=== PATIENT | male | born 1990 | race Two or more races ===

== ENCOUNTER 2018-05-04 01:50 | Inpatient (IN) | payer MEDICAID ==
[~2018-05-04] VITALS: Ht 175.3 cm; Wt 78.5 kg
[2018-05-04] MEDS ORDERED: MORPHINE SULFATE 4 MG/ML CPJ (NOT FOR IM USE) IV STA (02:38)
[2018-05-04] MEDS ORDERED: SODIUM CHLORIDE 0.9% 1,000 ML IV ONE (02:38)
[2018-05-04] MEDS ORDERED: ONDANSETRON HCL 4MG/2ML INJ IM ONE (02:45)
[2018-05-04 03:50] LABS: BASOPHILS % 0.3 % (0.0-2.0); EOSINOPHILS % 0.4 % (0.0-5.0); HEMATOCRIT. 50.3 % (42.0-52.0); LYMPHOCYTES % 16.5 % (20.0-50.0); MEAN CORPUSCULAR HEMOGLOBIN 30.6 pg (28.0-32.0); MEAN CORPUSCULAR VOLUME 90.4 fL (80.0-94.0); NEUTROPHILS % 75.8 % (40.0-76.0); PLATELET 287 x1000/uL (130-400); RED BLOOD CELL COUNT 5.57 mill/uL (4.7-6.1); RED CELL DISTRIBUTION WIDTH 12.8 % (11.6-14.6)
[2018-05-04 03:57] LABS: INR 1.1; PROTHROMBIN TIME 11.3 sec (9.1-11.1)
[2018-05-04 04:01] LABS: CHLORIDE 105 mEq/L (98-107)
[2018-05-04] MEDS ORDERED: METRONIDAZOLE 500MG TABLET PO ONE (04:15)
[2018-05-04] MEDS ORDERED: SODIUM CHLORIDE 0.9% 1000ML BAG (SEPSIS BOLUS) IV ONE (04:30)
[2018-05-04] MEDS ORDERED: CEFTRIAXONE 1 G PREMIX 50 ML IV SCH (04:54)
[2018-05-04] MEDS ORDERED: METRONIDAZOLE 500 MG PREMIX 100 ML IV SCH (04:55)
[2018-05-04] MEDS ORDERED: ONDANSETRON HCL 4MG/2ML INJ IV ONE (05:30)
[2018-05-04 08:00] VITALS: BP 139/86
[2018-05-04 08:50] VITALS: BP 139/86
[2018-05-04] MEDS ORDERED: LORA10CA MT (10:22)
[2018-05-04] MEDS ORDERED: ACETAMINOPHEN 325MG TABLET PO PRN (11:00)
[2018-05-04] MEDS ORDERED: MAGNESIUM/ALUMINUM HYDROXIDE/SIMETHICONE 30ML UDC PO PRN (11:00)
[2018-05-04] MEDS ORDERED: ONDANSETRON HCL 4MG/2ML INJ IV PRN (11:00)
[2018-05-04] MEDS ORDERED: DIPHENHYDRAMINE 50MG/ML VIAL IV PRN (11:00)
[2018-05-04] MEDS ORDERED: KETOROLAC 30MG/ML VIAL IV PRN (11:15)
[2018-05-04] MEDS ORDERED: LEVOFLOXACIN 500MG PREMIX 100 ML IV SCH (12:00)
[2018-05-04] MEDS ORDERED: MVI, ADULT NO.1 10 ML, FOLIC ACID 1 MG, THIAMINE HCL 100 MG in SODIUM CHLORIDE 0.9% 1,0... IV SCH ×4 (12:30)
[2018-05-04] MEDS: SODIUM CHLORIDE 0.9% 1,000 ML IV SCH ×2 (12:44→22:34)
[2018-05-04 16:00] VITALS: BP 115/71
[2018-05-04 20:00] VITALS: BP 121/64
[2018-05-04 21:11] LABS: CLARITY URINE CLEAR (CLEAR); COLOR URINE YELLOW (YELLOW); KETONES URINE TRACE (NEGATIVE); LEUKOCYTE ESTERASE URINE NEGATIVE (NEGATIVE); NITRITE URINE NEGATIVE (NEGATIVE); OCCULT BLOOD URINE NEGATIVE (NEGATIVE); PROTEIN URINE NEGATIVE (NEGATIVE); SPECIFIC GRAVITY URINE 1.008 (1.005-1.030); UROBILINOGEN URINE 0.2 E.U./dL (0.2-1.0)
[2018-05-04 21:23] LABS: *AMPHETAMINES SCREEN URINE NEGATIVE (NEGATIVE); *BARBITURATES SCREEN URINE NEGATIVE (NEGATIVE); *BENZODIAZEPINES SCREEN URINE NEGATIVE (NEGATIVE); *COCAINE SCREEN URINE NEGATIVE (NEGATIVE); METHADONE URINE SCREEN NEGATIVE (NEGATIVE); OPIATES URINE SCREEN PRESUMTIVE POSITIVE (NEGATIVE)
[2018-05-04 21:24] LABS: CANNABINOID URINE SCREEN PRESUMTIVE POSITIVE (NEGATIVE); PHENCYCLIDINE URINE SCREEN NEGATIVE (NEGATIVE)
[2018-05-04] MEDS: FAMOTIDINE 20MG/2ML VIAL IV SCH (21:44)
[2018-05-04 22:00] VITALS: BP 135/78
[2018-05-05] VITALS: BP 135/78
[2018-05-05 07:36] LABS: BASOPHILS % 0.1 % (0.0-2.0); EOSINOPHILS % 0.1 % (0.0-5.0); HEMATOCRIT. 42.5 % (42.0-52.0); HEMOGLOBIN. 14.6 g/dL (14.0-18.0); LYMPHOCYTES % 15.3 % (20.0-50.0); MEAN CORPUSCULAR HEMOGLOBIN 31.1 pg (28.0-32.0); MEAN CORPUSCULAR VOLUME 90.7 fL (80.0-94.0); MEAN PLATELET VOLUME 8.3 fl (7.4-10.4); MONOCYTES % 11.8 % (2.0-8.0); NEUTROPHILS % 72.7 % (40.0-76.0); PLATELET 245 x1000/uL (130-400); RED BLOOD CELL COUNT 4.68 mill/uL (4.7-6.1)
[2018-05-05 07:43] LABS: CHLORIDE 109 mEq/L (98-107)
[2018-05-05 07:59] LABS: PHOSPHORUS 2.3 mg/dL (2.5-4.9)
[2018-05-05 08:00] VITALS: BP 122/90
[2018-05-05] MEDS: FAMOTIDINE 20MG/2ML VIAL IV SCH (08:40)
[2018-05-05] MEDS ORDERED: POTASSIUM-SODIUM PHOSPHATE POWDER PACKET PO SCH (12:15)
[2018-05-05 12:50] VITALS: BP 117/89
== END 2018-05-05 13:24 | disposition home or self-care (01) | DRG 720 ==
LOC: EDBEDREQTM 05:42 → EDBEDREQ 05:42 → ENRESERV 07:25 → ER 08:51 → 5WST 08:52 → 8WST 14:45
PROVIDERS: ADMIT Internal Medicine; ATTEND Internal Medicine
DX: A41.9 Sepsis, unspecified organism (principal); F17.200 Nicotine dependence, unspecified, uncomplicated; K52.9 Noninfective gastroenteritis and colitis, unspecified; Z80.42 Family history of malignant neoplasm of prostate; Z82.49 Family history of ischemic heart disease and other diseases of the circulatory system
CPT/HCPCS: 36415; 71045; 74176; 76705; 80048; 80053; 80305; 81003; 82270; 83036; 83605; 83690; 83735; 84100; 85025; 85610; 87015; 87040; 87045; 87086; 87427; 87449; 89055; 96361; 96365; 96372; 96375; 99291; J0696; J1956; J2270; J2405; J3411; J3490; J7030